=== PATIENT | male | born 1950 | race Caucasian/White ===

== ENCOUNTER 2018-03-16 08:17 | Outpatient (CLI) | payer MEDICARE ==
--- NOTE | 2018-03-16 10:27 | ULT ---
ABDOMINAL AORTIC ULTRASOUND: HISTORY: Screening study. COMPARISON: None. TECHNIQUE: Sagittal and transverse imaging of the aorta is performed. FINDINGS: Limited evaluation. The proximal aorta measures 1.3 cm in the sagittal plane x 1.3 x 1.4 cm in the t ransverse plane. Mid aorta measures 1.3 cm in the sagittal plane and measures 1.3 x 1.3 cm in the transverse plane. T he distal aorta measures 1.2 cm in the sagittal plane and measures 1.3 x 1.3 cm in the transverse jodie ne. Neither iliac artery is appreciated. IMPRESSION: No evidence of dilatation of the visualized aorta. POS: [facility]
== END 2018-03-16 08:18 | disposition home or self-care (01) ==
LOC: NAV ULT 08:17
PROVIDERS: ATTEND Internal Medicine
DX: Z13.6 Encounter for screening for cardiovascular disorders (principal)
CPT/HCPCS: 76775

== ENCOUNTER 2021-06-05 10:19 | Outpatient (CLI) | payer MEDICARE | END 2021-06-05 10:20 | disposition home or self-care (01) | LOC: NAV RAD 10:19 | PROVIDERS: ATTEND Family Medicine | DX: M12.811 Other specific arthropathies, not elsewhere classified, right shoulder (principal); M19.011 Primary osteoarthritis, right shoulder ==